=== PATIENT | female | born 1970 | race Asian ===

== ENCOUNTER 2017-07-23 21:42 | Emergency (ER) | payer MEDICARE, OTHER ==
[~2017-07-23] VITALS: Ht 157.5 cm; Wt 67.1 kg
[2017-07-23] MEDS ORDERED: UNOBMED (21:47)
[2017-07-23 22:09] VITALS: BP 155/95
--- NOTE | 2017-07-23 22:36 | Emergency Room Report ---
History of Present Illness General Chief Complaint: Behavioral Complaint Source: Patient, EMS Present Illness HPI Is a 47 year-old [place] female with history of anxiety. She presents with chief complaint of chest pain and shortness of breath. She was involved in a verbal altercation at the doctor's office with another patient. She was driven home and in the car was hyperventilating. Said she felt short of breath and can 't breathe. Family called 911. She took her anxiety medication before calling 911. Denies any syncope. Denies any suicidal thought homicidal thought. 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 Allergies: Coded Allergies: No Known Allergies (Unverified , 07/23/17) Patient History Limited by: language barrier Past Medical History: see triage record, old chart reviewed, psych hx Past Surgical History: none Pertinent Family History: none Social History: Denies: smoking Last Menstrual Period: unk Now: No Immunizations: other Reviewed Nursing Documentation: PMH: Agreed, PSxH: Agreed Nursing Documentation-PMH Hx Diabetes: Yes History Of Psychiatric Problem: Yes - ANXIETY Review of Systems Eye: Denies: eye pain, blurred vision ENT: Denies: ear pain, nose congestion, throat swelling Respiratory: Reports: shortness of breath, Denies: cough Cardiovascular: Reports: chest pain, Denies: palpitations Gastrointestinal: Denies: abdominal pain, diarrhea, nausea, vomiting Musculoskeletal: Denies: back pain, joint pain Skin: Denies: rash Neurological: Denies: headache, numbness Endocrine: Denies: increased thirst, increased urine Hematologic/Lymphatic: Denies: easy bruising All Other Systems: negative except mentioned in HPI Physical Exam Vital Signs Date Time Temp Pulse Resp B/P (MAP) Pulse Ox O2 Delivery O2 Flow Rate FiO2 07/23/17 21:41 99.0 98 16 155/95 95 Room Air vitals normal Sp02 EP Interpretation: reviewed, normal General Appearance: well appearing, no apparent distress, alert Head: normocephalic, atraumatic Eyes: bilateral eye PERRL, bilateral eye EOMI ENT: hearing grossly normal, normal pharynx Neck: full range of motion, supple, no meningismus Respiratory: chest non-tender, lungs clear, normal breath sounds Cardiovascular #1: regular rate, rhythm, no murmur Gastrointestinal: normal bowel sounds, non tender, no mass, no organomegaly, no bruit, non-distended Musculoskeletal: back normal, gait/station normal, normal range of motion Psychiatric: mood/affect normal Skin: warm/dry Medical Decision Making Diagnostic Impression: Primary Impression: Anxiety ER Course Patient presents with anxiety attack. No suicidal thought homicidal thought. No ACS, PE, dissection to name a few. We'll discharge home. Last Vital Signs Date Time Temp Pulse Resp B/P (MAP) Pulse Ox O2 Delivery O2 Flow Rate FiO2 07/23/17 22:09 99.0 98 16 155/95 95 Room Air Status: improved Disposition: HOME, SELF-CARE Condition: Stable Additional Instructions: Follow up with your doctor in 7 days. Return if worse. MICHAEL HOFFMAN M.D. Jul 23, 2017 22:36
[2017-07-23 22:42] VITALS: BP 155/95
== END 2017-07-23 22:42 | disposition home or self-care (01) ==
LOC: EDBD 21:42 → EMR 22:30
DX: F41.9 Anxiety disorder, unspecified (principal); E11.9 Type 2 diabetes mellitus without complications
CPT/HCPCS: 99283